=== PATIENT | female | born 1995 | race Caucasian/White ===

== ENCOUNTER 2018-01-01 15:34 | Emergency (ER) | payer MEDICAID ==
[~2018-01-01] VITALS: Ht 152.4 cm; Wt 97.3 kg
[2018-01-01 15:47] VITALS: Ht 152.4 cm; Wt 97.3 kg
[2018-01-01] MEDS ORDERED: SEROQUEL50 MG PO (15:48)
[2018-01-01] MEDS ORDERED: OMEPRAZOLE40 MG (15:48)
[2018-01-01] MEDS ORDERED: MOBIC7.5 MG (15:48)
[2018-01-01 18:53] VITALS: BP 110/73
== END 2018-01-01 18:47 | disposition home or self-care (01) ==
LOC: D.ER 15:34
DX: S09.90XA Unspecified injury of head, initial encounter (principal); W22.8XXA Striking against or struck by other objects, initial encounter; Y93.89 Activity, other specified; Y92.019 Unspecified place in single-family (private) house as the place of occurrence of the external cause